=== PATIENT | male | born 1960 | race African-American/Black ===

== ENCOUNTER 2017-02-05 02:56 | Emergency (ER) | payer MEDICARE, OTHER ==
--- NOTE | ~2017-02-05 | CR18 ---
[facility] A Service of [facility] RADIOLOGY TEXT RESULTS PATIENT: COSMO MURILLO LOCATION: [facility] : 64 UNIT #: [id number] AGE: [address]: Robinson Beltran MD SEX: M ORDER DR: [id number] [facility] [address] [place], [place] [address] [id number] E MR#: [id number] Acc #: [id number] NAME: COSMO MURILLO : 1960 SEX: M STUDY DATE/TIME: 02/05/2017 1:49 UNIT: [facility] ROOM: STUDY DESCRIPTION: CR Ankle 2 Views Rt Attending Physician: Robinson Beltran M.D. Ordering Physician: Robinson Beltran M.D. Primary Care Physician: Beth Mcmahon M.D. MEDICAL IMAGING REPORT This report is preliminary unless electronic signature is present EXAM Right ankle 3 views 02/05/2017 HISTORY Fell on bathtub tonight. Right lateral ankle pain. COMPARISON None. FINDINGS No acute fracture or joint dislocation is seen. There is chronic-appearing bony fragmentation along the dorsal surface of the navicular bone and the talus. Base of fifth metatarsal is intact. IMPRESSION 1. Chronic-appearing bony fragmentation along the dorsal margin of the distal talus and the navicular bone. 2. No acute abnormality in the right ankle. Dictated by... Bridgette House M.D. THIS IS AN ELECTRONICALLY VERIFIED REPORT Bridgette House M.D. at 02/09/2017 8:37 AM PAPI/ravindra TD: 02/05/2017 10:12 JOB #: [id number] MEDICAL IMAGING REPORT Page 1 of 1 COPY
--- NOTE | ~2017-02-05 | CR170 ---
[facility] A Service of [facility] RADIOLOGY TEXT RESULTS PATIENT: COSMO MURILLO LOCATION: [facility] : 64 UNIT #: [id number] AGE: [address]: Robinson Beltran MD SEX: M ORDER DR: [id number] [facility] [address] [place], [place] [address] [id number] E MR#: [id number] Acc #: [id number] NAME: COSMO MURILLO : 1960 SEX: M STUDY DATE/TIME: 02/05/2017 1:51 UNIT: [facility] ROOM: STUDY DESCRIPTION: CR Knee 2 Views Rt Attending Physician: Robinson Beltran M.D. Ordering Physician: Robinson Beltran M.D. Primary Care Physician: Beth Mcmahon M.D. MEDICAL IMAGING REPORT This report is preliminary unless electronic signature is present EXAM 2 views right knee DATE OF EXAMINATION 02/05/2017 HISTORY Fell in bathtub tonight. Pain below the right patella. COMPARISON Knee radiographs from 02/26/2011 are not available for correlation at the time of this interpretation due to computer malfunction. FINDINGS No acute fracture or joint dislocation is seen. Small posterior patellar osteophytes are present with mild patellofemoral compartment joint space narrowing. Lateral and medial compartment joint spaces appear fairly well preserved. No osteolytic or osteoblastic abnormality. Probable trace suprapatellar joint effusion. IMPRESSION 1. Mild degenerative changes of the patellofemoral compartment with mild joint space narrowing and posterior patellar osteophyte formation. 2. Trace suprapatellar joint effusion. 3. No acute osseous abnormality. Dictated by... Bridgette House M.D. THIS IS AN ELECTRONICALLY VERIFIED REPORT Bridgette House M.D. at 02/09/2017 8:37 AM PAPI/cyril [facility] A Service of [facility] RADIOLOGY TEXT RESULTS PATIENT: COSMO MURILLO LOCATION: [facility] : 64 UNIT #: [id number] AGE: [address]: Robinson Beltran MD SEX: M ORDER DR: TD: 02/05/2017 10:06 JOB #: [id number] MEDICAL IMAGING REPORT Page 1 of 1 COPY
--- NOTE | ~2017-02-05 | EKG ---
PATIENT: COSMO MURILLO UNIT #: [id number] Ventricular Rate: 82 BPM Atrial Rate: 82 BPM P-R Interval: 158 ms QRS Duration: 110 ms Q-T Interval: 388 ms QTC Calculation(Bezet): 453 ms P [place]: 54 degrees Calculated R [place]: 9 degrees Calculated T [place]: 27 degrees Diagnosis Line: Normal sinus rhythm Diagnosis Line: Cannot rule out Inferior infarct , age Diagnosis Line: undetermined Diagnosis Line: Abnormal ECG Diagnosis Line: No previous ECGs available Diagnosis Line: Confirmed by MAYRA BELLAMY MD ([id number]) on 02/08/2017 Diagnosis Line: 7:19:40 AM INTERPRETING MD: JOSESITO PARRISH
[2017-02-05 01:38] LABS: BASOPHIL# 0.1 X10e3 (0-0.3); BASOPHIL% 0.8 % (0-2.5); DIFF IND NO; EOSINOPHIL% 0.4 % (0.0-7.0); HEMATOCRIT 44.3 % (38.0-50.0); HEMOGLOBIN 14.7 gm/dL (13.0-16.0); LYMPHOCYTE# 1.7 X10e3 (1.0-3.5); LYMPHOCYTE% 14.8 % (17.0-45.0); MEAN CELL VOLUME 89.2 FL (83-96); MEAN CORPUSCULAR HEMOGLOBIN 29.5 PG (28-34); MEAN CORPUSCULAR HGB CONC 33.1 g/dL (30-36); MEAN PLATELET VOLUME 10.8 FL (6.5-11.5); MONOCYTE# 0.7 X10e3 (0-1.0); MONOCYTE% 6.5 % (3.0-12.0); NEUTROPHIL# 8.9 X10e3 (1.5-7.1); NEUTROPHIL% 77.5 % (40-75); PLATELET COUNT 237 X10e3 (140-420); RED BLOOD COUNT 4.97 X10e (3.90-5.60); RED CELL DISTRIBUTION WIDTH 14.2 % (11.0-15.5); WHITE BLOOD COUNT 11.5 X10e3 (4.0-10.5)
[2017-02-05 01:52] LABS: POC - CKMB <1.0 ng/mL (0.0-7.9); POC - TROPONIN <0.05 ng/mL (<=0.05)
[2017-02-05 02:33] LABS: ALBUMIN SERUM 4.1 g/dL (3.5-5.0); BILIRUBIN, DIRECT 0.2 mg/dL (0.0-0.2); BILIRUBIN,INDIRECT 1.4 mg/dL (0.0-0.9); BILIRUBIN,TOTAL 1.6 mg/dL (0.2-2.0); BUN/CREATININE RATIO 15.29; CALCIUM SERUM 9.6 mg/dL (8.4-10.2); CREATININE SERUM 1.7 mg/dL (0.6-1.4); GLOM FILT RATE Estimated 54.3 mL/min (>60); POTASSIUM 4.4 mmol/L (3.5-5.1); PROTEIN TOTAL SERUM 7.8 g/dL (6.0-8.3)
[~2017-02-05 02:56] MED LIST: AMLODIPINE BESY10 MG PO; BENTYL10 MG PO; GLUCOPHAGE500 MG PO; LISINOPRIL10 MG PO; METFORMIN PO; NAPROSYN500 MG PO; PANTOPRAZOLE SO40 MG PO; PHENERGAN25 MG PO; PROTONIX PO; VICODIN ES 7.51 EAC1 PO; ZOFRANODT PO
== END 2017-02-05 05:19 | disposition home or self-care (01) ==
LOC: CED 02:56
PROVIDERS: Emergency Medicine
DX: R55 Syncope and collapse (principal); E11.65 Type 2 diabetes mellitus with hyperglycemia; R06.00 Dyspnea, unspecified
CPT/HCPCS: 36415; 73560; 73600; 80048; 80076; 82553; 82947; 84484; 85025; 93005; 96361; 96374; 99285

== ENCOUNTER → 2017-03-16 | Outpatient (CLI) | payer MEDICARE, OTHER ==
--- NOTE | ~2017-03-16 | CT4 ---
[facility] A Service of [facility] RADIOLOGY TEXT RESULTS PATIENT: COSMO MURILLO LOCATION: [facility] : 64 UNIT #: [id number] AGE: [address]: Pedro Luis Mcmahon MD SEX: M ORDER DR: [id number] [id number] [facility] [place], [place] [address] [id number] O MR#: [id number] Acc #: [id number] NAME: COSMO MURILLO : 1960 SEX: M STUDY DATE/TIME: 03/16/2017 10:52 UNIT: [facility] ROOM: STUDY DESCRIPTION: CT Abd and Pelv Wo Cont Attending Physician: Pedro Luis Mcmahon M.D. Referring Physician: Pedro Luis Mcmahon M.D. Ordering Physician: Pedro Luis Mcmahon M.D. Primary Care Physician: Beth Mcmahon M.D. MEDICAL IMAGING REPORT This report is preliminary unless electronic signature is present EXAM CT of the abdomen and pelvis without contrast INDICATIONS Decreased kidney function. Discomfort in left side of abdomen for [address] of the abdomen and pelvis was performed without contrast. Coronal and sagittal reformatted images were obtained. This CT exam was performed with one or more of the following radiation dose reduction techniques: automatic exposure control, adjustment of mA and/or kV according to patient size, and iterative reconstruction. COMPARISON 12/09/2015 FINDINGS Lung bases are clear. There is mild fatty infiltration of the liver. The gallbladder and spleen are unremarkable. There is a stable large cyst in the peripelvic region of the left kidney. The right kidney is unremarkable. The adrenal glands and pancreas are unremarkable. Pelvis: There is mild thickening of the urinary bladder which is not significantly changed accounting for differences in bladder distension compared to the previous study. The colon is unremarkable. The appendix is normal. The bone windows are unremarkable. IMPRESSION 1. Stable left renal cysts. 2. No evidence of kidney stone. 3. Additional findings as described. [facility] A Service [facility] RADIOLOGY TEXT RESULTS PATIENT: COSMO MURILLO LOCATION: [facility] : 64 UNIT #: [id number] AGE: [address]: Pedro Luis Mcmahon MD SEX: M ORDER DR: Dictated by... Roberto Potter M.D. THIS IS AN ELECTRONICALLY VERIFIED REPORT Roberto Potter M.D. at 03/18/2017 7:25 AM ARS/to TD: 03/16/2017 17:58 JOB #: [id number] MEDICAL IMAGING REPORT Page 1 of 1 COPY
== END | disposition home or self-care (01) ==
LOC: CCAT 10:28
DX: R10.9 Unspecified abdominal pain (principal); R93.8 Abnormal findings on diagnostic imaging of other specified body structures; R94.4 Abnormal results of kidney function studies; N28.1 Cyst of kidney, acquired
CPT/HCPCS: 74176